=== PATIENT | male | born 1960 | race Caucasian/White ===

== ENCOUNTER → 2016-08-07 | Outpatient (CLI) | payer OTHER ==
[~2016-08-07] MED LIST: FUROSEMIDE 20 MG/2 ML ONE
== END | disposition home or self-care (01) ==
LOC: PETCFH 10:19
PROVIDERS: ATTEND Urology
DX: N52.9 Male erectile dysfunction, unspecified (principal); R39.15 Urgency of urination; N13.30 Unspecified hydronephrosis
CPT/HCPCS: 78708; A9562; J1940